=== PATIENT | female | born 1965 | race Caucasian/White ===

== ENCOUNTER 2018-02-15 13:56 | Outpatient (CLI) | END 2018-02-15 13:57 | disposition home or self-care (01) | LOC: LAB 13:56 | PROVIDERS: ATTEND Internal Medicine | DX: E05.90 Thyrotoxicosis, unspecified without thyrotoxic crisis or storm (principal); R94.5 Abnormal results of liver function studies | CPT/HCPCS: 36415; 80053; 84439; 84443 ==

== ENCOUNTER 2018-02-18 13:10 | Outpatient (CLI) | END 2018-02-18 13:11 | disposition home or self-care (01) | LOC: LAB 13:10 | PROVIDERS: ATTEND Internal Medicine | DX: Z85.850 Personal history of malignant neoplasm of thyroid (principal) | CPT/HCPCS: 36415; 85651; 86038; 86430; 86800 ==